=== PATIENT | male | born 1995 | race Caucasian/White ===

== ENCOUNTER 2019-03-04 13:46 | Emergency (ER) | payer OTHER ==
[~2019-03-04] VITALS: Ht 188 cm; Wt 68.2 kg
[2019-03-04 14:02] VITALS: BP 124/68
[2019-03-04 15:15] LABS: BASO # 0.1 (0.0-0.2); BASO % 1.2 % (0.0-2.0); EOS # 0.4 (0.0-0.7); EOS % 5.9 % (0-4.0); GRAN # 3.9 (1.4-6.5); GRAN % 60.7 % (42.2-75.2); HEMATOCRIT 51.5 % (42.0-52.0); HEMOGLOBIN 17.8 g/dl (13.5-18.0); LYMPH # 1.3 (1.2-3.4); LYMPH % 19.8 % (20.0-51.0); MEAN CELL VOLUME 84 fl (80.0-100.0); MEAN CORPUSCULAR HEMOGLOBIN 29 pg (27.0-31.0); MEAN CORPUSCULAR HGB CONC 35 g/dl (33.0-37.0); MEAN PLATELET VOLUME 10.8 fl (7.4-10.4); MONO # 0.8 (0.1-0.6); MONO % 12.1 % (1.7-9.3); PLATELET COUNT 240 K/mm3 (130-400); RED BLOOD COUNT 6.17 M/mm3 (4.20-5.60)
[2019-03-04 15:30] LABS: ALBUMIN 3.6 gm/dL (3.5-5.0); BILIRUBIN,TOTAL 0.5 mg/dL (0.0-1.0); C-REACTIVE PROTEIN 3.3 mg/dL (0.0-0.9); CALCIUM 8.6 mg/dL (8.4-10.2); CREATININE, serum 0.89 (0.66-1.25); POTASSIUM 4.3 mmol/L (3.4-5.0); TOTAL PROTEIN 5.9 gm/dL (6.4-8.2)
[2019-03-04] MEDS ORDERED: CEPHALEXIN500 M1 PO (16:21)
[2019-03-04] MEDS ORDERED: PREDNISONE20 MG PO (16:21)
[2019-03-04 16:35] VITALS: PULSE 101; TEMP 97.4
== END 2019-03-04 16:35 | disposition home or self-care (01) ==
LOC: COL.ER 13:46
PROVIDERS: Physician Assistant
DX: L20.9 Atopic dermatitis, unspecified (principal)
CPT/HCPCS: J1885; J7030